=== PATIENT | male | born 1940 | race Caucasian/White ===

== ENCOUNTER 2024-01-03 13:17 | Emergency (ER) | payer MEDICARE ==
[~2024-01-03] VITALS: Ht 185.4 cm; Wt 104.5 kg
[2024-01-03 14:10] VITALS: BP 156/91; PULSE 74; TEMP 98.5
== END 2024-01-03 14:10 | disposition home or self-care (01) ==
LOC: COL.ER 13:17
DX: L72.3 Sebaceous cyst (principal); I48.91 Unspecified atrial fibrillation; Z79.82 Long term (current) use of aspirin; Z79.899 Other long term (current) drug therapy